=== PATIENT | female | born 1985 | race African-American/Black ===

== ENCOUNTER 2019-02-27 15:21 | Emergency (ER) | payer SELFPAY ==
[~2019-02-27] VITALS: Ht 157.5 cm; Wt 75.0 kg
[2019-02-27] MEDS ORDERED: IRON (FERROUS S50 MG PO (15:51)
[2019-02-27 16:07] LABS: HEMATOCRIT 27.8 % (37.0-47.0); HEMOGLOBIN 9.6 g/dl (12.0-16.0); IMMATURE GRANULOCYTES 0.5 % (0.0-5.0); MEAN CELL VOLUME 61.2 fL CALC (80.0-100.0); MEAN CORPUSCULAR HGB 21.1 pG CALC (26.0-32.0); MEAN CORPUSCULAR HGB CONC 34.5 g/L CALC (32.0-36.0); NEUT# 6.66 thou/uL (2.00-7.15); RED BLOOD COUNT 4.54 mill/uL (4.20-5.60); RED CELL DISTRI WIDTH 20.2 % (11.5-15.5)
[2019-02-27 16:18] LABS: ANION GAP 15 (6-22 (CALC)); BUN 8 mg/dL (7-17); BUN/CREATININE RATIO 11 (12-20 (CALC)); CARBON DIOXIDE 24 mmol/l (22-30); CHLORIDE 105 mmol/l (95-108); CREATININE 0.7 mg/dL (0.5-1.0); GFR > 60 ML/MIN (>=60 (CALC)); GFR FOR AFR.AMER. > 60 ML/MIN (>=60 (CALC)); SODIUM 140 mmol/l (137-146)
[2019-02-27 17:06] VITALS: BP 129/76
== END 2019-02-27 17:07 | disposition home or self-care (01) | DRG 310 ==
LOC: ED 15:21
PROVIDERS: Family Medicine
DX: R00.2 Palpitations (principal); D64.9 Anemia, unspecified